=== PATIENT | female | born 2000 | race Two or more races ===

== ENCOUNTER 2021-11-23 09:34 | Outpatient (CLI) | payer OTHER | END 2021-11-23 10:23 | disposition home or self-care (01) | LOC: NST 09:34 | PROVIDERS: ATTEND Specialist | DX: Z34.83 Encounter for supervision of other normal pregnancy, third trimester (principal) ==

== ENCOUNTER 2021-11-23 12:00 | Inpatient (IN) | payer OTHER ==
[~2021-11-23] VITALS: Ht 162.6 cm; Wt 83.0 kg
[2021-12-06] MEDS ORDERED: PRENATAL 19 CH1 EAC1 PO (18:05)
[2021-12-09] MEDS ORDERED: FERROUS SULFAT325 MG PO (10:00)
== END 2021-12-09 14:29 | disposition home or self-care (01) | DRG 807 ==
LOC: EDUNIT# 12:00 → OB/GYN 11-30 12:00 → LDR 12-06 17:53 → OB/GYN 12-06 17:53
PROVIDERS: ADMIT Specialist; ATTEND Specialist
PROC: 10E0XZZ Delivery of Products of Conception, External Approach (ICD-10-PCS; principal; 2021-12-06)
PROC: 4A1HXCZ Monitoring of Products of Conception, Cardiac Rate, External Approach (ICD-10-PCS; 2021-12-06)
PROC: 0HQ9XZZ Repair Perineum Skin, External Approach (ICD-10-PCS; 2021-12-06)
DX: O70.0 First degree perineal laceration during delivery (principal); Z37.0 Single live birth; Z3A.41 41 weeks gestation of pregnancy; Z20.822 Contact with and (suspected) exposure to COVID-19

== ENCOUNTER 2021-11-30 09:18 | Outpatient (CLI) | payer OTHER | END 2021-11-30 10:25 | disposition home or self-care (01) | LOC: NST 09:18 | PROVIDERS: ATTEND Specialist | DX: Z34.83 Encounter for supervision of other normal pregnancy, third trimester (principal) ==

== ENCOUNTER 2023-03-06 11:34 | Outpatient (CLI) | payer OTHER ==
[~2023-03-06 11:34] MED LIST: FERROUS SULFAT325 MG PO; PRENATAL 19 CH1 EAC1 PO
== END 2023-03-06 11:59 | disposition home or self-care (01) ==
LOC: SONOGRAMA 11:34
PROVIDERS: ATTEND Specialist
DX: O02.1 Missed abortion (principal)

== ENCOUNTER 2023-03-07 05:30 | Inpatient (IN) | payer OTHER ==
[~2023-03-07] VITALS: Ht 162.6 cm; Wt 68.0 kg
== END 2023-03-08 10:38 | disposition home or self-care (01) | DRG 770 ==
LOC: LDR 05:30 → O/R 05:30 → OB/GYN 15:43
PROVIDERS: ADMIT Specialist; ATTEND Specialist
PROC: 3E033VJ Introduction of Other Hormone into Peripheral Vein, Percutaneous Approach (ICD-10-PCS; 2023-03-07)
PROC: 3E0P7VZ Introduction of Hormone into Female Reproductive, Via Natural or Artificial Opening (ICD-10-PCS; 2023-03-07)
PROC: 10A07ZZ Abortion of Products of Conception, Via Natural or Artificial Opening (ICD-10-PCS; principal; 2023-03-07 16:45)
DX: O03.4 Incomplete spontaneous abortion without complication (principal); Z3A.17 17 weeks gestation of pregnancy; Z20.822 Contact with and (suspected) exposure to COVID-19

== ENCOUNTER 2024-05-26 21:31 | Outpatient (CLI) | payer OTHER ==
[2024-05-26 21:24] VITALS: BP 106/61
[~2024-05-26 21:31] MED LIST changes: -ACETAMINOPHEN 500 MG GEL..CAP PO ONE; -HIERRO PO; -PRENATAL + DHA1 EAC1 PO; -RINGERS SOLUTION,LACTATED 1,000 ML IV SCH
[2024-05-26] MEDS ORDERED: RINGERS SOLUTION,LACTATED 1,000 ML IV SCH (22:45)
[2024-05-26] MEDS ORDERED: ACETAMINOPHEN 500 MG GEL..CAP PO PRN (22:45)
[2024-05-26] MEDS ORDERED: HIERRO PO (23:09)
[2024-05-26] MEDS ORDERED: PRENATAL + DHA1 EAC1 PO (23:12)
[2024-05-26 23:17] LABS: HEMATOCRIT 27.7 % (36.0-45.00); HEMOGLOBIN 9.2 g/dL (12.0-15.00); MEAN CELL VOLUME 88.1 fL (80.00-100.00); MEAN CORPUSCULAR HEMOGLOBIN 29.4 pg (27.00-32.0); MEAN CORPUSCULAR HGB CONC 33.4 g/dl (32.0-36.0); PH,URINE 6.5 (5.0-8.0); PLATELET COUNT 148 K/uL (150-450); RED BLOOD COUNT 3.14 M/uL (4.00-6.00); URINE APPEARANCE Cloudy; URINE BILIRRUBIN Negative (NEGATIVE); URINE BLOOD Negative; URINE COLOR Yellow; URINE GLUCOSE Negative (NEGATIVE); URINE KETONE Trace (NEGATIVE); URINE LEUKOCYTE Trace; URINE NITRATE Negative; URINE PROTEIN Negative (NEGATIVE)
[2024-05-26 23:20] LABS: URINE BACTERIA 5120.5 uL (0.0-1933); URINE EPITHELIAL CELLS 147.7 uL (0.0-38.8); URINE WBC 24.4 uL (0.0-23.2)
[2024-05-26 23:26] LABS: URINE CAST 0.91 uL (0.0-1.40); URINE RBC 1.9 uL (0.0-20.8)
[2024-05-26 23:37] VITALS: BP 94/55
[2024-05-26 23:37] LABS: INR 0.99; PARTIAL THROMBOPLASTIN TIME 24.4 SECONDS (22.0-34.0); PROTHROMBIN TIME 10.8 SECONDS (9.0-11.5)
[2024-05-26 23:42] LABS: ALBUMIN 2.7 gm/dL (3.4-5.0); BILIRUBIN TOTAL 0.29 mg/dL (0.3-1.2); CALCIUM 8.2 mg/dL (8.5-10.1); CREATININE SERUM 0.44 mg/dL (0.55-1.02); GFR 174.23; GLOBULINA 3.1 G/DL (2.4-3.5); POTASSIUM 3.97 mEq/L (3.5-5.1); TOTAL PROTEIN 5.8 gm/dL (6.4-8.2)
[2024-05-27 03:30] VITALS: BP 97/62
[2024-05-27 06:10] VITALS: BP 89/50; O2SAT 99
[2024-05-27] MEDS ORDERED: IRON/V.C/V.B12/FOLIC A/VIT. E 1 CAPL CAPLET PO SCH (09:00)
[2024-05-27 09:15] VITALS: BP 90/50
== END 2024-05-27 10:14 | disposition home or self-care (01) ==
LOC: OBS/DEL 21:31
PROVIDERS: ATTEND Obstetrics & Gynecology Gynecology
DX: O26.893 Other specified pregnancy related conditions, third trimester (principal); Z3A.36 36 weeks gestation of pregnancy

== ENCOUNTER → 2024-05-26 | Emergency (ER) | payer OTHER ==
[~2024-05-26] VITALS: Ht 157.5 cm; Wt 59.0 kg
[~2024-05-26] MED LIST changes: +ACETAMINOPHEN 500 MG GEL..CAP PO ONE; +HIERRO PO; +PRENATAL + DHA1 EAC1 PO; +RINGERS SOLUTION,LACTATED 1,000 ML IV SCH
[2024-05-26 19:37] VITALS: BP 114/74; O2SAT 98
--- NOTE | 2024-05-26 19:38 | NUR ---
PTE EMBARAZADA DE 35 SEMANAS ALERTA Y ORIENTADA X3, SE TOMQAN S/V. PTE REFIERE TENER PRRESION JEANIE AL MOMENTO DE TRIAGE BP 114/74 Y PULSO 88. PTE REFIERE TENER DOLOR DE QUINTEN. AL MOMENTO PTE REFIERE NO TENER SANGRADO NI DOLOR ABDOMINAL
--- NOTE | 2024-05-26 19:38 | NUR ---
PTE EMBARAZADA DE 35 SEMANAS, ALERAT 6
== END | disposition still patient (30) ==
LOC: ER 19:25 → SEC-K 20:32
DX: O26.893 Other specified pregnancy related conditions, third trimester (principal); Z3A.37 37 weeks gestation of pregnancy; R51.9 Headache, unspecified

== ENCOUNTER → 2024-06-14 | Outpatient (CLI) | payer OTHER ==
[~2024-06-14] MED LIST changes: +HIERRO PO; +PRENATAL + DHA1 EAC1 PO
== END | disposition home or self-care (01) ==
LOC: NST 11:32
PROVIDERS: ATTEND Obstetrics & Gynecology Gynecology
DX: Z34.83 Encounter for supervision of other normal pregnancy, third trimester (principal)

== ENCOUNTER 2024-06-19 02:45 | Outpatient (CLI) | payer OTHER ==
[~2024-06-19] VITALS: Ht 162.6 cm; Wt 71.2 kg
[2024-06-19 02:01] VITALS: BP 108/65
[2024-06-19] MEDS ORDERED: RINGERS SOLUTION,LACTATED 1,000 ML IV SCH (03:00)
[2024-06-19 04:40] LABS: MEAN CELL VOLUME 87.6 fL (80.00-100.00); MEAN CORPUSCULAR HGB CONC 33.7 g/dl (32.0-36.0); PLATELET COUNT 144 K/uL (150-450); RED BLOOD COUNT 2.85 M/uL (4.00-6.00); RED CELL DISTRIBUTION WIDTH 16.1 % (11.5-14.5)
[2024-06-19 04:42] LABS: HEMOGLOBIN 8.4 g/dL (12.0-15.00); MEAN CORPUSCULAR HEMOGLOBIN 29.4 pg (27.00-32.0)
[2024-06-19 04:52] LABS: ALBUMIN 2.6 gm/dL (3.4-5.0); BILIRUBIN TOTAL 0.25 mg/dL (0.3-1.2); CALCIUM 7.9 mg/dL (8.5-10.1); CREATININE SERUM 0.51 mg/dL (0.55-1.02); GFR 146.93; GLOBULINA 2.8 G/DL (2.4-3.5); POTASSIUM 3.45 mEq/L (3.5-5.1); TOTAL PROTEIN 5.4 gm/dL (6.4-8.2)
[2024-06-19 05:05] LABS: INR 0.98; PARTIAL THROMBOPLASTIN TIME 24.5 SECONDS (22.0-34.0); PROTHROMBIN TIME 10.7 SECONDS (9.0-11.5)
[2024-06-19 07:21] VITALS: BP 114/73
== END 2024-06-19 08:45 | disposition home or self-care (01) ==
LOC: LDR 02:45 → OB/GYN 02:45 → OBS/DEL 02:45 → LDR 08:45
PROVIDERS: Obstetrics & Gynecology Maternal & Fetal Medicine; ATTEND Obstetrics & Gynecology Gynecology
DX: O47.1 False labor at or after 37 completed weeks of gestation (principal); O99.013 Anemia complicating pregnancy, third trimester; Z3A.40 40 weeks gestation of pregnancy

== ENCOUNTER 2024-06-22 01:58 | Inpatient (IN) | payer OTHER ==
[2024-06-22] VITALS (9 sets, daily range): BP systolic 95–109; BP diastolic 56–78; O2SAT 100
[~2024-06-22] VITALS: Ht 162.6 cm; Wt 71.2 kg
[2024-06-22] MEDS ORDERED: MORPHINE SULFATE 4 MG/ML CARTRIDGE IV PRN (02:15)
[2024-06-22] MEDS ORDERED: RINGERS SOLUTION,LACTATED 1,000 ML IV SCH (02:15)
[2024-06-22 03:02] LABS: HEMOGLOBIN 9.2 g/dL (12.0-15.00); MEAN CORPUSCULAR HEMOGLOBIN 29.5 pg (27.00-32.0); MEAN CORPUSCULAR HGB CONC 33.9 g/dl (32.0-36.0); PLATELET COUNT 145 K/uL (150-450)
[2024-06-22 03:26] LABS: INR 0.94; PARTIAL THROMBOPLASTIN TIME 24.2 SECONDS (22.0-34.0); PROTHROMBIN TIME 10.3 SECONDS (9.0-11.5)
[2024-06-22] MEDS ORDERED: CHLORHEXIDINE GLUCONATE 120 ML BOTTLE TOP ONE (06:10)
[2024-06-22] MEDS ORDERED: LIDOCAINE HCL 1% 10ML VIAL IJ ONE (06:15)
[2024-06-22] MEDS ORDERED: ERYTHROMYCIN BASE OPHT 1GM EACH TUBE OP ONE (06:15)
[2024-06-22] MEDS ORDERED: OXYTOCIN 1,000 ML IV SCH (07:45)
[2024-06-22] MEDS ORDERED: IBUprofen 400 MG TABLET PO PRN (10:15)
[2024-06-22] MEDS ORDERED: OxyCODONE HCL/APAP UD (PERCOCET) PO PRN (10:15)
[2024-06-22 11:22] LABS: HEMATOCRIT 27.6 % (36.0-45.00); HEMOGLOBIN 9.1 g/dL (12.0-15.00); MEAN CELL VOLUME 87.8 fL (80.00-100.00); MEAN CORPUSCULAR HEMOGLOBIN 29.1 pg (27.00-32.0); MEAN CORPUSCULAR HGB CONC 33.1 g/dl (32.0-36.0); PLATELET COUNT 166 K/uL (150-450); RED BLOOD COUNT 3.14 M/uL (4.00-6.00)
[2024-06-23 00:37] VITALS: BP 90/60
[2024-06-23 07:59] VITALS: BP 94/60
[2024-06-23] MEDS ORDERED: IRON FUM,PS/FOLIC/BCOMP,C NO.9 1 CAP CAPSULE PO SCH (09:00)
[2024-06-23 15:26] VITALS: BP 101/68
[2024-06-24 01:30] VITALS: BP 102/64
[2024-06-24 08:00] VITALS: BP 110/65; BP 111/74
== END 2024-06-24 10:10 | disposition home or self-care (01) | DRG 807 ==
LOC: LDR 01:58 → OB/GYN 01:58
PROVIDERS: ADMIT Obstetrics & Gynecology; ATTEND Obstetrics & Gynecology
PROC: 10E0XZZ Delivery of Products of Conception, External Approach (ICD-10-PCS; principal; 2024-06-22)
PROC: 4A1HXCZ Monitoring of Products of Conception, Cardiac Rate, External Approach (ICD-10-PCS; 2024-06-22)
DX: O80 Encounter for full-term uncomplicated delivery (principal); Z37.0 Single live birth; Z3A.40 40 weeks gestation of pregnancy; Z20.822 Contact with and (suspected) exposure to COVID-19